=== PATIENT | female | born 1990 | race Caucasian/White ===

== ENCOUNTER 2019-07-09 16:17 | Outpatient (CLI) | payer OTHER ==
[2019-07-09 16:52] LABS: HGB - HEMOGLOBIN 11.5 g/dL (12.0-16.0); MEAN CORPUSCULAR HEMOGLOBIN 32.5 pg (27.0-31.0); MEAN CORPUSCULAR HGB CONC 34.2 g/dL (32.0-36.0); MEAN CORPUSCULAR VOLUME 94.9 fL (81.0-99.0); MEAN PLATELET VOLUME 9.2 fL (7.9-10.8); RED BLOOD COUNT 3.54 10^6/uL (4.20-5.40); RED CELL DISTRIBUTION WIDTH 12.1 % (12.0-15.0); WHITE BLOOD COUNT 8.9 x10^3/uL (4.8-10.8)
== END 2019-07-09 16:18 | disposition home or self-care (01) ==
LOC: LAB 16:17
PROVIDERS: ATTEND Obstetrics & Gynecology
DX: O99.419 Diseases of the circulatory system complicating pregnancy, unspecified trimester (principal); R00.2 Palpitations; Z3A.00 Weeks of gestation of pregnancy not specified
CPT/HCPCS: 36415; 84443; 85027; 93005

== ENCOUNTER 2019-07-16 10:54 | Outpatient (CLI) | payer OTHER ==
--- NOTE | 2019-07-17 10:39 | Ultrasound Report ---
Reason: LABOR SECOND TRIMESTER Procedure Date: 07/16/2019 Accession Number: [id number] / [id number] Procedure: US - OB Transvaginal CPT Code: Final Report FULL RESULT: EXAM: LIMITED OBSTETRICAL ULTRASOUND EXAM DATE: 07/16/2019 12:08 PM. CLINICAL HISTORY: LABOR SECOND TRIMESTER. COMPARISON: None. TECHNIQUE: Real-time transvaginal sonographic evaluation of the fetus performed by the senior wealth advisor. Multiple apparel trimmings sales representative static images were saved for review. DATING: Established EGA 23 weeks 2 days with DANIKA 11/10/2019. GENERAL EVALUATION Otng . Cardiac activity: 141 bpm. movement: Visualized. Presentation: Breech. Placenta: Anterior position. No previa. Amniotic fluid: Subjectively normal. ANATOMY Limited evaluation. No gross abnormality. MATERNAL STRUCTURES Cervix closed, measures 4.3 cm. IMPRESSION: 1. Tong live intrauterine with gestational age 23 weeks 2 days based on established DANIKA. 2. Cervix closed, measures 4.3 cm. LIZZYA
== END 2019-07-16 10:55 | disposition home or self-care (01) ==
LOC: DI 10:54
PROVIDERS: ATTEND Obstetrics & Gynecology
DX: O60.02 Preterm labor without delivery, second trimester (principal); Z87.51 Personal history of pre-term labor; Z3A.23 23 weeks gestation of pregnancy
CPT/HCPCS: 76817

== ENCOUNTER 2019-08-15 08:36 | Outpatient (CLI) | payer OTHER | END 2019-08-15 08:37 | disposition home or self-care (01) | LOC: LAB 08:36 | PROVIDERS: ATTEND Obstetrics & Gynecology | DX: Z36.89 Encounter for other specified antenatal screening (principal) | CPT/HCPCS: 36415; 82950; 85027; 86850 ==

== ENCOUNTER 2019-08-20 08:37 | Outpatient (CLI) | payer OTHER ==
[2019-08-20 09:57] LABS: HGB - HEMOGLOBIN 10.8 g/dL (12.0-16.0); MEAN CORPUSCULAR HEMOGLOBIN 31.3 pg (27.0-31.0); MEAN CORPUSCULAR HGB CONC 32.5 g/dL (32.0-36.0); MEAN CORPUSCULAR VOLUME 96.2 fL (81.0-99.0); MEAN PLATELET VOLUME 9.3 fL (7.9-10.8); RED BLOOD COUNT 3.45 10^6/uL (4.20-5.40); RED CELL DISTRIBUTION WIDTH 13.1 % (12.0-15.0); WHITE BLOOD COUNT 8.7 x10^3/uL (4.8-10.8)
== END 2019-08-20 08:38 | disposition home or self-care (01) ==
LOC: LAB 08:37
PROVIDERS: ATTEND Obstetrics & Gynecology
DX: Z36.89 Encounter for other specified antenatal screening (principal)
CPT/HCPCS: 36415; 82950; 85027; 86850

== ENCOUNTER 2019-09-01 20:42 | Outpatient (CLI) | payer OTHER ==
[2019-09-01] MEDS ORDERED: TERBUTALINE 1 MG/ML VIAL SUBQ ONE (20:52)
[2019-09-01 22:22] VITALS: BP 127/69
--- NOTE | 2019-09-01 22:53 | PROVIDER PROGRESS NOTE ---
- HPI Chief Complaint: Labor Check Current : Current EDU 11/10/19 Gestation 30 Weeks and 0 Days 3 Para 2 Vital Signs Temperature 36.9 C 09/01/19 22:11 Heart Rate 81 09/01/19 22:11 Respiratory Rate 18 09/01/19 22:11 Blood Pressure 127/69 09/01/19 22:11 O2 Saturation 99 09/01/19 22:11 Temperature 36.9 C 09/01/19 22:11 Heart Rate 81 09/01/19 22:11 Respiratory Rate 18 09/01/19 22:11 Blood Pressure 127/69 09/01/19 22:11 O2 Saturation 99 09/01/19 22:11 - Procedures NST Procedure: reactive NST - Plan Plan: See full dictation
--- NOTE | 2019-09-01 22:56 | Ultrasound Report ---
Reason: Haja coe for PTL Procedure Date: 09/01/2019 Accession Number: [id number] / [id number] Procedure: US - OB Transvaginal CPT Code: Final Report FULL RESULT: EXAM: LIMITED OBSTETRICAL ULTRASOUND EXAM DATE: 09/01/2019 10:21 PM. CLINICAL HISTORY: Cervical length for labor. COMPARISON: OB TRANSVAGINAL 07/16/2019 11:35 AM. TECHNIQUE: Real-time sonographic evaluation of the fetus performed by the machine wedger. Multiple floor representative static images were saved for review. Additional transvaginal imaging to more accurately evaluate cervical length/placental position/etc. FINDINGS: DATING: Established EGA 30 weeks 0 days with DANIKA 11/10/2019. GENERAL EVALUATION Tong . Cardiac activity: 131 beats per minute. movement: Visualized. Presentation: Cephalic. Placenta: Anterior position without previa. ANATOMY Not performed. MATERNAL STRUCTURES Cervix measures 3.7 cm, closed. This was measured transvaginally. IMPRESSION: 1. Tong live intrauterine with gestational age 30 weeks 0 days based on established DANIKA of 11/10/2019. 2. Cervix 3.7 cm and closed. RADIA
--- NOTE | 2019-10-05 10:40 | PROCEDURE REPORT ---
- HPI Current EDU 11/10/19 Gestation 30 Weeks and 0 Days 3 Para 2 Vital Signs Temperature 36.9 C 09/01/19 22:11 Heart Rate 81 09/01/19 22:11 Respiratory Rate 18 09/01/19 22:11 Blood Pressure 127/69 09/01/19 22:11 O2 Saturation 99 09/01/19 22:11 Temperature 36.9 C 09/01/19 22:11 Heart Rate 81 09/01/19 22:11 Respiratory Rate 18 09/01/19 22:11 Blood Pressure 127/69 09/01/19 22:11 O2 Saturation 99 09/01/19 22:11 - Results and Plan Findings/Impression: 30 weeks, Cervix is long and FFn negative Dx contractions without labor.
== END 2019-09-01 22:35 | disposition home or self-care (01) ==
LOC: WFO 20:42 → FBP 20:44 → WFO 22:35
PROVIDERS: ATTEND Obstetrics & Gynecology
DX: Z34.83 Encounter for supervision of other normal pregnancy, third trimester (principal); Z3A.30 30 weeks gestation of pregnancy
CPT/HCPCS: 76817; 82731; 96372; 99214

== ENCOUNTER 2019-09-03 08:39 | Outpatient (CLI) | payer OTHER ==
[2019-09-03 09:09] LABS: HGB - HEMOGLOBIN 10.8 g/dL (12.0-16.0); MEAN CORPUSCULAR HEMOGLOBIN 32.9 pg (27.0-31.0); MEAN CORPUSCULAR HGB CONC 34.1 g/dL (32.0-36.0); MEAN CORPUSCULAR VOLUME 96.6 fL (81.0-99.0); MEAN PLATELET VOLUME 9.8 fL (7.9-10.8); RED BLOOD COUNT 3.28 10^6/uL (4.20-5.40); RED CELL DISTRIBUTION WIDTH 13.1 % (12.0-15.0); WHITE BLOOD COUNT 8.1 x10^3/uL (4.8-10.8)
== END 2019-09-03 08:40 | disposition home or self-care (01) ==
LOC: LAB 08:39
PROVIDERS: ATTEND Obstetrics & Gynecology
DX: O99.810 Abnormal glucose complicating pregnancy (principal); O99.019 Anemia complicating pregnancy, unspecified trimester; Z3A.00 Weeks of gestation of pregnancy not specified
CPT/HCPCS: 36415; 82951; 82952; 85027

== ENCOUNTER 2019-09-11 08:02 | Outpatient (CLI) | payer OTHER ==
[2019-09-11 08:28] LABS: HGB - HEMOGLOBIN 11.3 g/dL (12.0-16.0); MEAN CORPUSCULAR HEMOGLOBIN 33.1 pg (27.0-31.0); MEAN CORPUSCULAR VOLUME 94.7 fL (81.0-99.0); MEAN PLATELET VOLUME 9.5 fL (7.9-10.8); RED BLOOD COUNT 3.41 10^6/uL (4.20-5.40); RED CELL DISTRIBUTION WIDTH 12.7 % (12.0-15.0); WHITE BLOOD COUNT 11.4 x10^3/uL (4.8-10.8)
== END 2019-09-11 08:03 | disposition home or self-care (01) ==
LOC: LAB 08:02
PROVIDERS: ATTEND Nurse Practitioner Obstetrics & Gynecology
DX: O99.019 Anemia complicating pregnancy, unspecified trimester (principal); Z3A.00 Weeks of gestation of pregnancy not specified
CPT/HCPCS: 36415; 85027

== ENCOUNTER 2019-10-03 09:42 | Outpatient (CLI) | payer OTHER ==
[2019-10-03 12:12] LABS: HB2 TOTAL 10.8 g/dL; HEMOGLOBIN A1C 0.48 g/dL; HEMOGLOBIN A1C % 6.2 % (4.6-6.2)
== END 2019-10-03 23:59 | disposition home or self-care (01) ==
LOC: LAB.WCP 09:42
PROVIDERS: ATTEND Obstetrics & Gynecology
DX: O99.810 Abnormal glucose complicating pregnancy (principal); Z3A.00 Weeks of gestation of pregnancy not specified
CPT/HCPCS: 36415; 83036

== ENCOUNTER 2019-10-18 08:00 | Outpatient (CLI) | payer OTHER ==
[2019-10-18 20:59] LABS: TRICHOMONAS VAGINALIS DNA NEGATIVE (NEGATIVE)
== END 2019-10-18 23:59 | disposition home or self-care (01) ==
LOC: LAB.R 08:00
PROVIDERS: ATTEND Obstetrics & Gynecology
DX: Z36.85 Encounter for antenatal screening for Streptococcus B (principal)
CPT/HCPCS: 87491; 87591; 87661; 87797

== ENCOUNTER 2019-10-25 22:45 | Inpatient (IN) | payer OTHER ==
[2019-10-26] MEDS ORDERED: LACTATED RINGERS 1,000 ML IV SCH ×2 (05:30→10:00)
[2019-10-26] MEDS ORDERED: ceFAZolin 2 GM in SODIUM CHLORIDE 0.9% 100ML 100 ML IV ONE (05:30)
[2019-10-26] MEDS ORDERED: CITRIC ACID/SODIUM CITRATE 15 ML UDC PO ONE (05:31)
[2019-10-26 05:59] LABS: BASOPHILS % (AUTO) 0.4 %; EOSINOPHILS # (AUTO) 0.1 10^3/uL (0.0-0.7); EOSINOPHILS % (AUTO) 0.7 %; HGB - HEMOGLOBIN 12.3 g/dL (12.0-16.0); LYMPHOCYTES # (AUTO) 2.3 10^3/uL (1.5-3.5); LYMPHOCYTES % (AUTO) 20.4 %; MEAN CORPUSCULAR HEMOGLOBIN 32.7 pg (27.0-31.0); MEAN CORPUSCULAR HGB CONC 34.2 g/dL (32.0-36.0); MEAN CORPUSCULAR VOLUME 95.7 fL (81.0-99.0); MEAN PLATELET VOLUME 10.2 fL (7.9-10.8); MONOCYTES # (AUTO) 0.7 10^3/uL (0.0-1.0); NEUTROPHILS # (AUTO) 8.2 10^3/uL (1.5-6.6); NEUTROPHILS % (AUTO) 71.5 %; PLT - PLATELET COUNT 253 10^3/uL (130-450); RED BLOOD COUNT 3.76 10^6/uL (4.20-5.40); WHITE BLOOD COUNT 11.4 x10^3/uL (4.8-10.8)
--- NOTE | 2019-10-26 06:15 | ANESTHESIA ---
Pre-Anesthesia VS, & Labs - Diagnosis IUP, previous C/S - Procedure C/S Vital Signs: Temp Pulse Resp BP Pulse Ox 36.8 C 87 20 133/81 H 99 10/26/19 03:20 10/26/19 03:20 10/26/19 03:20 10/26/19 03:20 10/25/19 23:00 Height 5 ft 2 in Weight (kg) 69.4 kg - NPO >8 hours - Is Patient ?: Yes - Lab Results Current Lab Results: Laboratory Tests 10/26/19 05:50: WBC 11.4 H, RBC 3.76 L, Hgb 12.3, Hct 36.0 L, MCV 95.7, MCH 32.7 H, MCHC 34.2, RDW 13.0, Plt Count 253, MPV 10.2, Neut # (Auto) 8.2 H, Lymph # (Auto) 2.3, [place] # (Auto) 0.7, Eos # (Auto) 0.1, Baso # (Auto) 0.0, Absolute Nucleated RBC 0.00, Nucleated RBC % 0.0 Lab results reviewed: Yes Fish Bones: 10/26/19 05:50 Home Medications and Allergies Active Medications Lactated Ringer's (Lr) 1,000 mls @ 125 mls/hr IV .Q8H ONEAL Allergies/Adverse Reactions: Allergies Allergy/AdvReac Type Severity Reaction Status Date / Time No Known Drug Allergies Allergy Verified 09/01/19 21:49 Anes History & Medical History - Anesthetic History Anesthesia Complications: reports: No previous complications Family history of Anesthesia Complications: Denies Family history of Malignant Hyperthermia: Denies - Medical History Cardiovascular: reports: Other (palpitations noted by patient during this ) Pulmonary: reports: None Smoking Status: Former smoker - Surgical History Gynecologic: section (one via GETA, one via SAB) Exam General: Alert, Oriented x3, Cooperative Dental: WNL Mouth Opening: Greater than 4 Fingerbreadths Neck Mobility: Normal Mallampati classification: III Thyromental Distance: 4-6 cm Respiratory: Lungs clear Cardiovascular: Regular rate Plan Anesthesia Type: Spinal Consent for Procedure(s) Verified and Reviewed: Yes Code Status: Attempt Resuscitation ASA classification: 2-Mild systemic disease Is this case an emergency?: No
[2019-10-26] MEDS ORDERED: ePHEDrine 50 MG/ML VIAL IVP ONE (06:36)
[2019-10-26] MEDS ORDERED: ONDANSETRON 4 MG/2 ML VIAL IVP ONE (06:36)
[2019-10-26] MEDS ORDERED: fentaNYL 100 MCG/2 ML VIAL IVP ONE (06:36)
--- NOTE | 2019-10-26 06:40 | HISTORY & PHYSICAL EXAMINATION ---
Admit History - Risk/History: positive: Previous , Pre-eclampsia Complications This : positive: None Smoking Status: Former smoker - Mother's Labs Mother's Blood Type: positive: O Mother's RH: positive: Positive GBS: positive: Group B Step Negative (28 yo with DANIKA 11/10/2019 based on LMP cw 10 wk us O pos/Rub imm IS negative FAS wnl; anterior placenta. 3 VC. Normal DORIS EFW 38%ile CL 3.3 cm Influenza 07/09/2019 TDAP complete Glucola 173; 3H OGTT wnl HCT 33.3 on iron GBS at 36 wga HSV: denies Breast pump Rx given MOD: rLTCS at 39 wks or 11/03/2019 Desires delivery as early as possible given FOB pending deployment) Rubella Status: positive: Immune - Other Maternal History Other Maternal History: Patient is a 29-year-old G3, P2 at 37 weeks 6 days estimated gestational age who presented with painful contractions and was shown to be in early labor. Patient has had 2 prior C-sections and is scheduled for third . Contractions started late last night and have become increasingly intense. She did progress from 1 cm to 3 cm over a period of observation and thus we will proceed with a repeat low transverse . been previously scheduled on November 07, 2019. No LOF or VB. Endorses FM. Patient has a history of preeclampsia. Blood pressures are mildly elevated at presentation. Patient is without symptoms of headache/vision change/right upper quadrant pain. Risks/benefits/alternatives to the procedure were reviewed. Written informed consent was obtained. Meds/Allgy - Allergies Allergies/Adverse Reactions: Allergies Allergy/AdvReac Type Severity Reaction Status Date / Time No Known Drug Allergies Allergy Verified 09/01/19 21:49 Review of Systems - Other Findings Other Findings: As per HPI otherwise remaining systems are negative. Physical - Abdominal Exam Vital Signs: Temp Pulse Resp BP Pulse Ox 98.1 F 80 18 145/77 H 99 10/26/19 06:17 10/26/19 06:17 10/26/19 06:17 10/26/19 06:17 10/26/19 06:17 Contraction Frequency (min/apart): Q3-6 min Contraction Intensity: positive: Moderate Uterine Resting Tone: positive: Soft - Monitoring Heart Rate Baseline: 125 mod carlos 15x15 accels no decels Strip Review: positive: Category I - Presentation Presentation: positive: Vertex - Vaginal Exam Membranes: positive: Membranes intact Dilation (in cm): 3 Effacement (%): 80 Station: positive: 0 - Speculum Exam Speculum Exam Performed: positive: No Plan for Labor - Plan For Labor Plan for Labor: A/P: Patient is a 29-year-old G3, P2 at 37 weeks and 6 days estimated gestational age here in early labor with a history of prior x2. Patient admitted for repeat primary low transverse . LABOR: Written informed consent was obtained. Cefazolin 2 g IV on-call to the OR. Bicitra 30 mg p.o. x1. Proceed to OR PIH: Blood pressures elevated immediately prior to surgery Remain in mild range Will send PIH labs post op Will treat if blood pressures exceed 160 systolic or 105 diastolic Magnesium for severe range pressure/symptoms/lab abnormalities In-patient care
[2019-10-26] MEDS ORDERED: LIDOCAINE 1%-EPI 1:100000 20 ML MDV ONE (07:03)
[2019-10-26] MEDS ORDERED: LIDOCAINE 1%-EPI 1:100000 30 ML MDV SUBQ ONE (07:08)
[2019-10-26] MEDS ORDERED: LACTATED RINGERS 1,000 ML IV ONE ×4 (07:09→08:38)
[2019-10-26] MEDS ORDERED: SODIUM CHLORIDE 0.9% 500 ML IV ONE ×2 (08:07)
[2019-10-26] MEDS ORDERED: ROPIVACAINE 0.5% PF 20 ML AMPULE ONE (08:52)
--- NOTE | 2019-10-26 09:20 | OPERATIVE REPORT ---
Operative Report - General Admit Date: 10/26/19 Planned Procedure: Repeat low transverse Pre-Op Diagnosis: IUP at 37w6d, hx of prior x2, labor Procedure Performed: Repeat low transverse with wound revision Post Op Diagnosis: same and delivery of term - Procedure Note Primary Surgeon: Sharita Persaud MD Secondary Surgeon: Dilcia Dexter MD Anesthesia Provider: Isaias Welch CRNA Anesthesia Technique: Spinal Pathology: Placenta for routine discard IV Fluids (mL): 1,000 (refer to anesthesia record) Estimated Blood Loss (mL): 600 Urine Output (mL): 50 Indications: 29 yo at 37w6d ega presented in labor. IUP at 37w6d Hx of prio x2 Findings: Viable male in vertex presentation, OP presentation. Apgars 6/7. Normal uterus, tubes, ovaries Complications: None - Other Other Information/Narrative: Risks benefits and alternatives of the procedure were discussed. Written informed consent was obtained. Patient was taken to the operating room where spinal anesthesia was placed and found to be adequate. She was prepped and draped in the usual sterile fashion in the dorsal supine position with a leftward tilt. Jalloh catheter was in place. SCDs were in place and activated. Cefazolin 2 g IV was given as a preoperative antibiotic. Preoperative timeout was performed. A total of 20 cc of 1% lidocaine with epinephrine was injected into the suture line prior to making the incision. A incision was made above and below the prior Pfannenstiel incision/wound. Prior scar tissue was grasped with Allis clamps, elevated, and the underlying tissue was resected with Bovie cautery. The incision was then continued with a scalpel and carried through the underlying layer of fascia in a combination of sharp and blunt dissection. The fascia was incised in the midline, and the incision was extended laterally with the Painting scissors. The superior aspect of the fascial incision was grasped with the Jalen clamps, elevated, and the underlying rectus muscles were dissected off bluntly and sharply using the Painting scissors. Attention was then turned to the inferior aspect of the incision which in a similar fashion was grasped, tented up with Jalen clamps, and the underlying rectus muscles dissected off bluntly and sharply using Painting scissors. The rectus muscles were then in the midline. The peritoneum was identified, tented up, and entered bluntly. The peritoneal incision was extended superiorly and inferiorly with good visualization of the bladder. The bladder that blade was then inserted. A bladder flap was not created. The lower uterine segment of the uterus was identified, and incised in a transverse fashion with a scalpel, taking care to not enter the uterine wall completely. The uterus was then entered bluntly. The uterine incision was extended in a craniocaudal fashion by manual stretch. The intact amniotic sac was then ruptures. The bladder blade was removed. The was delivered from from vertex position. Baby was wrapped in a warm sterile towel. Delayed cord clamping was performed. After cessation of pulsations, the cord was clamped x2 and cut. The infant was handed off to the waiting pediatricians. The placenta was removed with manual expression. The uterus was not exteriored. It was cleared of all clots clots and debris via manual swipe using Ray-Jose x2. The uterine incision was then repaired in a running locked fashion using 0 Vicryl suture. The incision was reinforced with a running imbricating layer again using 0-Vicryl suture. Excellent hemostasis was obtained. The gutters were cleared of all clots and debris. The pelvis was irrigated with warm normal saline. The uterine defect was well visualized in normal anatomic position it was noted again to be hemostatic. The peritoneum was then reapproximated with 2-0 Vicryl in a running fashion. The rectus muscles were then reapproximated using interrupted [id number] sutures using 2-0 Chromic. Good hemostasis was noted. The fascia was then closed using 0 Vicryl in a running fashion starting from the left lateral edge to the midline. A second suture was used to close the fascia in a running fashion starting from the right lateral edge and meeting in the midline, agian using 0-Vicryl. The subcutaneous tissue was then irrigated and closed using 2-0 chromic in a running subcutaneous suture. Skin was closed in a running subcuticular suture using 4-0 Monocryl. Steri-Strips were applied to reinforce the incsion and dressing was applied. Procedure was well-tolerated and without complication. Sponge lap and needle counts were correct x2. Patient was taken to recovery room in stable condition. Dr. Dexter assisted with retraction, delivery of the , and suturing.
[2019-10-26] MEDS ORDERED: diphenhydrAMINE 25 MG CAPSULE PO PRN (09:39)
[2019-10-26] MEDS ORDERED: ONDANSETRON 4 MG/2 ML VIAL IVP PRN (09:39)
[2019-10-26] MEDS ORDERED: OXYTOCIN/SODIUM CHLORIDE 500 ML IV PRN (09:39)
[2019-10-26] MEDS ORDERED: HYDROCORTISONE 1% CREAM 28 GM TUBE PR PRN (09:39)
[2019-10-26] MEDS ORDERED: WITCH HAZEL/GLYCERIN 1 PAD TOP PRN (09:39)
[2019-10-26] MEDS ORDERED: HYDROmorphone 2 MG/ML VIAL IVP PRN (09:43)
[2019-10-26] MEDS ORDERED: ACETAMINOPHEN 500 MG TABLET PO SCH (10:00)
[2019-10-26 10:25] LABS: ALBUMIN 3.1 g/dL (3.2-5.5); ALBUMIN/GLOBULIN RATIO 1.1 (1.0-2.2); BILIRUBIN,TOTAL 0.5 mg/dL (0.2-1.0); CALCIUM 8.5 mg/dL (8.5-10.3); CREATININE 0.6 mg/dL (0.4-1.0); TOTAL PROTEIN 5.8 g/dL (6.7-8.2); URIC ACID 4.9 mg/dL (2.6-7.2)
[2019-10-26] MEDS: oxyCODONE 5 MG TABLET PO PRN ×3 (11:08→20:43)
[2019-10-26 12:37] LABS: CREATININE,URINE 64.9 mg/dL; PROTEIN/CREATININE RATIO,URINE 0.2 (<=0.2)
[2019-10-26] MEDS: SODIUM CHLORIDE FLUSH 0.9% 10 ML SYRINGE IVP SCH ×2 (13:46→16:04)
[2019-10-26] MEDS: KETOROLAC 30 MG/ML VIAL IVP PRN ×2 (13:46→20:03)
[2019-10-26] MEDS: SODIUM CHLORIDE FLUSH 0.9% 10 ML SYRINGE IVP PRN ×3 (13:46→20:03)
[2019-10-26] MEDS: ACETAMINOPHEN 1,000 MG/100 ML 100 ML IV PRN ×2 (16:03→22:17)
[2019-10-26] MEDS: SIMETHICONE CHEW 80 MG TABLET PO PRN (16:40)
[2019-10-26] MEDS: DOCUSATE SODIUM 100 MG CAPSULE PO SCH (20:43)
[2019-10-27] MEDS: KETOROLAC 30 MG/ML VIAL IVP PRN ×2 (02:15→08:29)
[2019-10-27] MEDS: SODIUM CHLORIDE FLUSH 0.9% 10 ML SYRINGE IVP PRN ×4 (02:16→10:38)
[2019-10-27] MEDS: ACETAMINOPHEN 1,000 MG/100 ML 100 ML IV PRN ×2 (04:20→10:38)
[2019-10-27] MEDS: oxyCODONE 5 MG TABLET PO PRN ×3 (04:41→12:59)
[2019-10-27 06:10] LABS: BASOPHILS % (AUTO) 0.2 %; EOSINOPHILS # (AUTO) 0.1 10^3/uL (0.0-0.7); EOSINOPHILS % (AUTO) 0.5 %; LYMPHOCYTES # (AUTO) 1.4 10^3/uL (1.5-3.5); LYMPHOCYTES % (AUTO) 11.4 %; MEAN CORPUSCULAR HEMOGLOBIN 31.4 pg (27.0-31.0); MEAN CORPUSCULAR HGB CONC 32.5 g/dL (32.0-36.0); MEAN CORPUSCULAR VOLUME 96.9 fL (81.0-99.0); MEAN PLATELET VOLUME 9.8 fL (7.9-10.8); MONOCYTES # (AUTO) 0.8 10^3/uL (0.0-1.0); MONOCYTES % (AUTO) 6.3 %; NEUTROPHILS # (AUTO) 9.6 10^3/uL (1.5-6.6); NEUTROPHILS % (AUTO) 80.9 %; PLT - PLATELET COUNT 202 10^3/uL (130-450); RED BLOOD COUNT 3.18 10^6/uL (4.20-5.40); RED CELL DISTRIBUTION WIDTH 13.2 % (12.0-15.0); WHITE BLOOD COUNT 11.8 x10^3/uL (4.8-10.8)
[2019-10-27] MEDS: DOCUSATE SODIUM 100 MG CAPSULE PO SCH (08:29)
[2019-10-27] MEDS: SIMETHICONE CHEW 80 MG TABLET PO PRN ×2 (08:29→12:04)
[2019-10-27] MEDS: SODIUM CHLORIDE FLUSH 0.9% 10 ML SYRINGE IVP SCH (08:29)
[2019-10-27] MEDS ORDERED: ACETAMINOPHEN 500 MG TABLET PO PRN (11:51)
--- NOTE | 2019-10-27 11:54 | Discharge Plan ---
Discharge Plan Problem Reviewed?: Yes Disposition: 01 Home, Self Care Condition: Good Diet: Regular Activity Restrictions: Additional Comments (Nothing in the vagina for 6 weeks: No intercourse, tampons, douching Call for: -Fever greater than 100.5 - Pain that does not improve with pain medication -Heavy bleeding in which you are soaking a pad an hour for 2 hours in a row No driving on narcotics No lifting more than 10# for 4 weeks) Shower Restrictions: Yes (Ok to shower. Let water run over incision, do not scrub, use soap/lotion) Driving Restrictions: Yes (No driving while taking narcotics) Weight Bearing: Full Weight Additional Instructions or Follow Up instructions: FU with Cori in 1 week No Smoking: If you smoke, Please STOP! Call for help. Follow-up with: CARTER SMITH MD, PHD [Physician No Access] -
--- NOTE | 2019-10-27 11:57 | PROVIDER PROGRESS NOTE ---
Subjective - Prog Note Date Prog Note Date: 10/27/19 Prog Note Time: 11:54 - Subjective Pt reports feeling: Improved Subjective: Patient is up and ambulating, tolerating po, and voiding. Pain is well managed with pain medications. BF going well. Minimal lochia. Requesting early discharge Objective - Vital Signs/Intake & Output Vital Signs: Vital Signs x48h Temp Pulse Resp BP Pulse Ox 10/27/19 08:05 97.7 F 68 17 120/73 100 10/27/19 04:26 98.4 F 72 18 123/65 100 Intake & Output: Intake & Output 10/24/19 10/25/19 10/26/19 10/27/19 23:59 23:59 23:59 23:59 Intake Total 1850 350 Output Total 1625 700 Balance 225 -350 - Objective General Appearance: positive: No acute distress Neck: positive: Nml inspection Respiratory: positive: No respiratory distress, Breath sounds nml Cardiovascular: positive: Regular rate & rhythm Abdomen: positive: Non-tender, Other (FF below umbi Dressing CDI) Back: positive: Nml inspection Extremities: positive: Non-tender, No pedal edema Neurologic/Psychiatric: positive: Oriented x3 - Lab Results Fish Bones: 10/27/19 06:05 10/26/19 09:56 Other Labs: Lab Results x24hrs 10/27/19 10/26/19 Range/Units 06:05 12:15 WBC 11.8 H (4.8-10.8) x10^3/uL RBC 3.18 L (4.20-5.40) 10^6/uL Hgb 10.0 L (12.0-16.0) g/dL Hct 30.8 L (37.0-47.0) % MCV 96.9 (81.0-99.0) fL MCH 31.4 H (27.0-31.0) pg MCHC 32.5 (32.0-36.0) g/dL RDW 13.2 (12.0-15.0) % Plt Count 202 (130-450) 10^3/uL MPV 9.8 (7.9-10.8) fL Neut # (Auto) 9.6 H (1.5-6.6) 10^3/uL Lymph # (Auto) 1.4 L (1.5-3.5) 10^3/uL [place] # (Auto) 0.8 (0.0-1.0) 10^3/uL Eos # (Auto) 0.1 (0.0-0.7) 10^3/uL Baso # (Auto) 0.0 (0.0-0.1) 10^3/uL Absolute Nucleated RBC 0.00 x10^3/uL Nucleated RBC % 0.0 /100WBC Urine Creatinine 64.9 mg/dL Ur Total Protein Timed 10 mg/dL Protein/Creatinin Ratio 0.2 (<=0.2) Assessment/Plan - Problem List (1) deliv NOS-unsp Impression: POD#1: Patient is doing well Transition to po pain meds Up and ambulating, tolerating po, voiding Desires early discharge 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 Will FU in one week in is cleared for discharge
[2019-10-27 12:18] VITALS: BP 118/78
[2019-10-27] MEDS ORDERED: IBUPROFEN 600 MG TABLET PO SCH (14:15)
== END 2019-10-27 14:45 | disposition home or self-care (01) | DRG 788 ==
LOC: WFO 22:45 → FBP 22:48 → WFO 10-26 05:23 → FBP 10-26 05:24
PROVIDERS: ADMIT Obstetrics & Gynecology; ATTEND Obstetrics & Gynecology
PROC: 10D00Z1 Extraction of Products of Conception, Low, Open Approach (ICD-10-PCS; principal; 2019-10-26 06:30)
DX: O34.211 Maternal care for low transverse scar from previous cesarean delivery (principal); O16.4 Unspecified maternal hypertension, complicating childbirth; Z37.0 Single live birth; Z3A.37 37 weeks gestation of pregnancy; Z87.59 Personal history of other complications of pregnancy, childbirth and the puerperium; Z87.891 Personal history of nicotine dependence
CPT/HCPCS: 36415; 80053; 82570; 84156; 84550; 85025; 86850; 86900; 86901; 86920; 99213; A9270; J0131; J7120

== ENCOUNTER 2021-11-18 08:00 | Outpatient (CLI) | payer OTHER ==
[2021-11-18 17:52] LABS: BASOPHILS # (AUTO) 0.1 10^3/uL (0.0-0.1); BASOPHILS % (AUTO) 0.7 %; EOSINOPHILS # (AUTO) 0.2 10^3/uL (0.0-0.7); HCT - HEMATOCRIT 41.7 % (37.0-47.0); HGB - HEMOGLOBIN 14.2 g/dL (12.0-16.0); LYMPHOCYTES # (AUTO) 2.2 10^3/uL (1.5-3.5); LYMPHOCYTES % (AUTO) 28.1 %; MEAN CORPUSCULAR HEMOGLOBIN 31.8 pg (27.0-31.0); MEAN CORPUSCULAR HGB CONC 34.1 g/dL (32.0-36.0); MEAN CORPUSCULAR VOLUME 93.5 fL (81.0-99.0); MEAN PLATELET VOLUME 9.6 fL (7.9-10.8); MONOCYTES # (AUTO) 0.5 10^3/uL (0.0-1.0); MONOCYTES % (AUTO) 6.3 %; NEUTROPHILS # (AUTO) 4.8 10^3/uL (1.5-6.6); NEUTROPHILS % (AUTO) 62.6 %; PLT - PLATELET COUNT 425 10^3/uL (130-450); RED BLOOD COUNT 4.46 10^6/uL (4.20-5.40); RED CELL DISTRIBUTION WIDTH 11.9 % (12.0-15.0); WHITE BLOOD COUNT 7.7 x10^3/uL (4.8-10.8)
[2021-11-18 18:19] LABS: ALBUMIN 4.7 g/dL (3.2-5.5); ALBUMIN/GLOBULIN RATIO 1.6 (1.0-2.2); ALKALINE PHOSPHATASE 58 IU/L (42-121); ALT ALANINE AMINOTRANSFERASE 44 IU/L (10-60); AST ASPARTATE AMINOTRANSFERASE 35 IU/L (10-42); BILIRUBIN,TOTAL 0.5 mg/dL (0.2-1.0); BUN - BLOOD UREA NITROGEN 9 mg/dL (6-20); CALCIUM 9.1 mg/dL (8.5-10.3); CARBON DIOXIDE - CO2 23 mmol/L (21-32); CHLORIDE 101 mmol/L (101-111); CREATININE 0.7 mg/dL (0.4-1.0); GFR - MDRD 98 (>89); GLUCOSE 88 mg/dL (70-100); SODIUM 135 mmol/L (135-145); TOTAL PROTEIN 7.7 g/dL (6.7-8.2)
[2021-11-18 18:27] LABS: THYROID STIMULATING HORMONE 1.82 uIU/mL (0.34-5.60)
[2021-11-18 18:33] LABS: CRP - C-REACTIVE PROTEIN < 1.0 mg/dL (0-1.0)
[2021-11-18 21:12] LABS: ESTIMATED AVERAGE GLUCOSE 108 mg/dL (70-100); HEMOGLOBIN A1c% 5.4 % (4.27-6.07)
== END 2021-11-18 18:39 | disposition home or self-care (01) ==
LOC: LAB.N 08:00
PROVIDERS: ATTEND Registered Nurse
DX: R42 Dizziness and giddiness (principal); R55 Syncope and collapse; R73.03 Prediabetes
CPT/HCPCS: 36415; 80053; 83036; 84443; 85025; 86140